=== PATIENT | male | born 1970 | race Caucasian/White ===

== ENCOUNTER 2016-10-23 15:30 | Emergency (ER) | payer SELFPAY ==
[2016-10-23 15:32] VITALS: BP 145/72; PULSE 95; RESP 14; TEMP 98.3; O2SAT 97
[2016-10-23 18:14] LABS: AUTOMATED NEUTROPHIL # 5.3 TH/MM3 (1.8-7.7); BASOPHIL # 0.1 TH/MM3 (0-0.2); BASOPHIL % 1.1 % (0.0-2.0); EOSINOPHIL # 0.2 TH/MM3 (0-0.4); EOSINOPHIL % 2.3 % (0.0-4.0); HEMATOCRIT 44.4 % (39.0-51.0); HEMO FLAGS DIFF FINAL; LYMPH % 21.6 % (9.0-44.0); LYMPHOCYTE # 1.9 TH/MM3 (1.0-4.8); MEAN CELL VOLUME 88.2 FL (80.0-100.0); MEAN CORPUSCULAR HEMOGLOBIN 29.9 PG (27.0-34.0); MEAN CORPUSCULAR HGB CONC 33.9 % (32.0-36.0); MONO % 15.9 % (0.0-8.0); NEUT % 59.1 % (16.0-70.0); PLATELET COUNT 208 TH/MM3 (150-450); RED BLOOD COUNT 5.03 MIL/MM3 (4.50-5.90); RED CELL DISTRIBUTION WIDTH 13.3 % (11.6-17.2)
[2016-10-23 18:22] LABS: AMPHETAMINE, URINE NEG (NEG); BARBITURATES, URINE NEG (NEG); COCAINE, URINE NEG (NEG)
[2016-10-23 18:23] VITALS: BP 141/65; PULSE 67; RESP 17; TEMP 99; O2SAT 98
[2016-10-23 18:33] LABS: ANION GAP 7 MEQ/L (5-15); BICARBONATE 28.6 MEQ/L (21.0-32.0); BLOOD UREA NITROGEN 16 MG/DL (7-18); CHLORIDE 106 MEQ/L (98-107); GLOMERULAR FILTRATION RATE 41 ML/MIN (>89); POTASSIUM 4.5 MEQ/L (3.5-5.1); SODIUM (NA) 142 MEQ/L (136-145)
[2016-10-23 18:42] LABS: ACETAMINOPHEN LESS THAN 2.0 MCG/ML (10.0-30.0); ALKALINE PHOSPHATASE 124 U/L (45-117); ALT (GPT) 34 U/L (12-78); AST (GOT) 24 U/L (15-37); TOTAL BILIRUBIN ADULT 0.4 MG/DL (0.2-1.0)
[2016-10-23 18:46] LABS: BLOOD, URINE NEG (NEG); COMMENT (UR) CULT NOT INDICATED; CULTURE IF INDICATED CULT NOT INDICATED; GLUCOSE,URINE NEG (NEG); HYALINE CAST, URINE 1 /lpf (RARE); KETONE, URINE TRACE mg/dL (NEG); MUCUS URINE MOD /lpf (OCC); NITRITE,URINE NEG (NEG); URINE COLOR YELLOW (YELLW/STRAW)
--- NOTE | 2016-10-23 18:52 | PD ---
HPI Chief Complaint: Psychiatric Symptoms Time Seen by Provider: 18:44 Travel History International Travel<30 days: No Contact w/Intl Traveler<30days: No Traveled to known affect area: No History of Present Illness HPI Patient's a 46-year-old male who presented to the emergency Department voluntarily for suicidal or homicidal ideations. Patient was actually accompanied by his mother initially. Patient states that he from his mid-September, his grandmother then at the beginning of October. Patient states that having on and off marital problems for several months, however the separation cost him to feel depressed, anxious. Patient states that he has not been sleeping well, waking up in a panic-like state. He does admit to a previous suicide attempt by overdosing on prescription medication and drinking a bottle of rum. Patient states on Saturday he binged on 2 - 24 packs of beer and smoked 4 packs of cigarettes. He denies any illicit drug use stated that he last smoked marijuana on September 08. He denies any physical complaints but has nasal congestion. [facility] Past Medical History Medical History: Denies Significant Hx Past Surgical History Joint Replacement: Yes (knee surgery) Family History Family History: Negative Social History Alcohol Use: Yes Tobacco Use: Yes Substance Use: No Allergies-Medications (Allergen,Severity, Reaction): Coded Allergies: No Known Allergies (Unverified , 10/23/16) Review of Systems Except as stated in HPI: all other systems reviewed are Neg HENT: Positive: Congestion Psychiatric: Positive: Anxiety, Depression, Suicidal Ideations, Substance Abuse , Homicidal Ideation Physical Exam Narrative GENERAL: Well-developed, well-nourished, alert male. Resting comfortably in no acute distress. SKIN: Warm and dry. HEAD: Atraumatic. Normocephalic. EYES: Pupils equal and round. No scleral icterus. No injection or drainage. ENT: No nasal bleeding or discharge. Mucous membranes pink and moist. NECK: Trachea midline. No JVD. CARDIOVASCULAR: Regular rate and rhythm. No murmur appreciated. RESPIRATORY: No accessory muscle use. Clear to auscultation. Breath sounds equal bilaterally. GASTROINTESTINAL: Abdomen soft, non-tender, nondistended. Hepatic and splenic margins not palpable. MUSCULOSKELETAL: No obvious deformities. No clubbing. No cyanosis. No edema. NEUROLOGICAL: Awake and alert. No obvious cranial nerve deficits. Motor grossly within normal limits. Normal speech. PSYCHIATRIC: Appropriate mood and affect; insight and judgment normal. Data Data Last Documented VS Vital Signs Date Time Temp Pulse Resp B/P Pulse Ox O2 Delivery O2 Flow Rate FiO2 10/23/16 18:23 99.0 67 17 141/65 98 10/23/16 15:32 Room Air Orders Complete Blood Count With Diff (10/23/16 17:33) Comprehensive Metabolic Panel (10/23/16 17:33) Urinalysis - C+S If Indicated (10/23/16 17:33) Psych Screen (10/23/16 17:33) Drug Screen, Random Urine (10/23/16 17:33) Alcohol (Ethanol) (10/23/16 17:33) Salicylates (Aspirin) (10/23/16 17:33) Tylenol (Acetaminophen) (10/23/16 17:33) Diet Regular Basic (10/23/16 Dinner) Labs Laboratory Tests Test 10/23/16 10/23/16 18:00 18:02 White Blood Count 9.0 TH/MM3 Red Blood Count 5.03 MIL/MM3 Hemoglobin 15.0 GM/DL Hematocrit 44.4 % Mean Corpuscular Volume 88.2 FL Mean Corpuscular Hemoglobin 29.9 PG Mean Corpuscular Hemoglobin 33.9 % Concent Red Cell Distribution Width 13.3 % Platelet Count 208 TH/MM3 Mean Platelet Volume 8.4 FL Neutrophils (%) (Auto) 59.1 % Lymphocytes (%) (Auto) 21.6 % Monocytes (%) (Auto) 15.9 % Eosinophils (%) (Auto) 2.3 % Basophils (%) (Auto) 1.1 % Neutrophils # (Auto) 5.3 TH/MM3 Lymphocytes # (Auto) 1.9 TH/MM3 Monocytes # (Auto) 1.4 TH/MM3 Eosinophils # (Auto) 0.2 TH/MM3 Basophils # (Auto) 0.1 TH/MM3 CBC Comment DIFF FINAL Differential Comment Sodium Level 142 MEQ/L Potassium Level 4.5 MEQ/L Chloride Level 106 MEQ/L Carbon Dioxide Level 28.6 MEQ/L Anion Gap 7 MEQ/L Blood Urea Nitrogen 16 MG/DL Creatinine 1.80 MG/DL Estimat Glomerular Filtration 41 ML/MIN Rate Random Glucose 94 MG/DL Calcium Level 8.9 MG/DL Total Bilirubin 0.4 MG/DL Aspartate Amino Transf 24 U/L (AST/SGOT) Alanine Aminotransferase 34 U/L (ALT/SGPT) Alkaline Phosphatase 124 U/L Total Protein 6.4 GM/DL Albumin 3.5 GM/DL Salicylates Level 4.3 MG/DL Acetaminophen Level LESS THAN 2.0 MCG/ML Ethyl Alcohol Level LESS THAN 3 MG/DL Urine Color YELLOW Urine Turbidity CLEAR Urine pH 6.0 Urine Specific [place] 1.034 Urine Protein 30 mg/dL Urine Glucose (UA) NEG mg/dL Urine Ketones TRACE mg/dL Urine Occult Blood NEG Urine Nitrite NEG Urine Bilirubin NEG Urine Urobilinogen 2.0 MG/DL Urine Leukocyte Esterase NEG Urine RBC 3 /hpf Urine WBC LESS THAN 1 /hpf Urine Hyaline Casts 1 /lpf Urine Mucus MOD /lpf Microscopic Urinalysis Comment CULT NOT INDICATED Urine Opiates Screen NEG Urine Barbiturates Screen NEG Urine Amphetamines Screen NEG Urine Benzodiazepines Screen NEG Urine Cocaine Screen NEG Urine Cannabinoids Screen NEG MDM Medical Decision Making Medical Screen Exam Complete: Yes Emergency Medical Condition: Yes Interpretation(s) Vital Signs Date Time Temp Pulse Resp B/P Pulse Ox O2 Delivery O2 Flow Rate FiO2 10/23/16 18:23 99.0 67 17 141/65 98 10/23/16 15:32 98.3 95 14 145/72 97 Room Air Differential Diagnosis Disorder versus substance abuse versus suicidal ideations versus homicidal ideations versus depression Narrative Course Patient is a 46-year-old male who presents voluntarily to the emergency department for suicidal or homicidal ideations. He from his which seemed to have sparked the depression and anxiety. Patient has been binge drinking and smoking excessive amounts of cigarettes. Labs reviewed and are unremarkable. Patient's vital signs are stable, is not exhibiting any signs of withdrawal. Patient has a solid support system at home. At this time patient is medically cleared for psychiatric evaluation. Diagnosis Primary Impression: Medical clearance for psychiatric admission Condition: Stable Crystal Shepherd Oct 23, 2016 18:52
[2016-10-23 21:59] VITALS: BP 137/65; PULSE 73; RESP 18; O2SAT 99
[2016-10-24 02:00] VITALS: BP 128/78; PULSE 89; RESP 18; O2SAT 98
[2016-10-24 06:04] VITALS: BP 147/90; PULSE 64; RESP 17; O2SAT 100
[2016-10-24 08:27] VITALS: BP 147/90; PULSE 64; RESP 17; O2SAT 100
== END 2016-10-24 10:00 | disposition home or self-care (01) ==
LOC: NEPJ 15:30
DX: F32.9 Major depressive disorder, single episode, unspecified (principal); Z72.0 Tobacco use
CPT/HCPCS: 80053; 80307; 80320; 80329; 81001; 85025; 99284; G0480